=== PATIENT | female | born 1980 | race Caucasian/White ===

== ENCOUNTER → 2020-07-29 09:11 | Outpatient (CLI) | payer OTHER, SELFPAY ==
[2020-07-29 08:34] VITALS: BMI 31.3
--- NOTE | 2020-07-29 09:27 | RAD_ITS ---
STUDY: X-RAY - RIGHT FOOT CLINICAL: Female, 40 years old. Right foot stepped on by horse last night, bruising throughout the entire foot, pain is dorsal side near all the toes TECHNIQUE: 3 view(s) of the foot. COMPARISON: None. FINDINGS: Screw fixation is seen in the body of the calcaneus. Normal visualized subtalar, talonavicular, calcaneocuboid, tarsal and tarsometatarsal articulations. Normal metatarsi. There is degenerative arthrosis of the metatarsophalangeal joint of the hallux with a hallux valgus deformity. Normal tibial and fibular sesamoid bones. Normal interphalangeal joint of the great toe. Normal phalanges of the great toe. Normal second through fifth metatarsophalangeal joints. Normal interphalangeal joints and phalanges of the lesser toes. Dorsal soft tissue swelling. RAD/Foot min 3 Views IMPRESSION: Dorsal soft tissue swelling. No fracture is seen. Electronically Signed: Carlos Chauhan, at 9:55 EDT , Service support ,
== END ==
PROVIDERS: Referring Provider Physician Assistant Surgical; Visit Provider Physician Assistant Surgical
DX: S90.31XA Contusion of right foot, initial encounter (principal); X58.XXXA Exposure to other specified factors, initial encounter; Y93.9 Activity, unspecified; Y92.9 Unspecified place or not applicable; Y99.9 Unspecified external cause status
CPT/HCPCS: 73630

== ENCOUNTER 2021-10-15 09:38 | Day surgery (SDC) | payer OTHER, SELFPAY ==
--- NOTE | 2021-10-14 13:16 | PCM.HP.BLA ---
History and Physical Date of Admission: 10/15/21 Expand All Collapse AllExpand All by Default Hide copied text Hover for details Pre-Op History and Physical ? HPI: The patient is a 41 year old female presenting for question regarding surgical intervention for 10 cm dermoid cyst. All tumor markers were negative. Patient would like to proceed with surgical intervention. ? Pre-operative visit. She is scheduled for laparoscopic right ovarian cystectomy possible oophorectomy for 10cm dermoid cyst and pelvic pain. on 10/15/21. Procedure discussed along with risks, benefits and complications. Other alternatives discussed for management. Consent form signed? Yes. ? ? PAST MEDICAL HISTORY PAST MEDICAL HISTORY Diagnosis Date ? HPV (human papilloma virus) infection 2010 ? colp done +16 & 18 ? Mild dysplasia of cervix 2013 ? DEAN 1 2011 2010 ? NEGATIVE MEDICAL HISTORY ? ? ? PAST SURGICAL HISTORY PAST SURGICAL HISTORY Procedure Laterality Date ? PAST SURGICAL HISTORY OF Right 2013 ? ankle surgery ? ? ? CURRENT MEDICATIONS No current outpatient medications on file. ? No current facility-administered medications for this visit. ? ? ALLERGIES: Patient has no known allergies. ? PERSONAL HISTORY: SOCIAL HISTORY Social History ? Tobacco Use ? Smoking status: Former Smoker ? Smokeless tobacco: Never Used Vaping Use ? Vaping Use: Never used Substance Use Topics ? Alcohol use: Yes ? ? Comment: 1-2 drinks per year ? Drug use: Never ? FAMILY HISTORY: FAMILY HISTORY No family history on file. ? REVIEW OF SYMPTOMS: negative except as noted above PHYSICAL EXAMINATION: ? VITALS: Blood pressure 124/72, height 5' 6.54 (1.69 m), weight 249 lb (112.9 kg), last menstrual period 09/29/2021. ? GENERAL: The patient is well nourished, well hydrated in no acute distress. , The patient is oriented to time, place, and person. NECK: full range of motion ? IMPRESSION: 41yo with pelvic pain, right ovarian dermoid cyst 10cm ? PLAN: Laparoscopic right cystectomy possible oophorectomy ? Pt has been counseled on risks/benefits and alternatives of surgery including but not limited to anesthesia, bleeding, infection, injury to pelvic structures including bowel, bladder, ureters and vessels. Pt wishes to proceed with surgery at this time. ? Pre and post op instructions reviewed COVID testing reviewed ? I have reviewed and updated past medical and surgical history, medications and allergies Светлана Manley MD ?3:36 PM
[2021-10-15] VITALS (7 sets, daily range): BP systolic 109–132; BP diastolic 73–90; PULSE 76–96; RESP 16–18; TEMP 35.9–36.7; O2SAT 94–100; BMI 38.4
--- NOTE | 2021-10-15 | OV_PTH ---
PATIENT: RUIZ BELL LOC: [facility] [place] [facility] [place][id number] AGE/SX: 41/F ROOM: RE10/15/[address]: Dr. Светлана Cox, MDDOB: 1980 BED: DIS: 10/15/2021 SPEC #: [id number] RECD: 10/15/21 15:39 STATUS: MADDY LILIAN #: [id number] VIMAL: 10/15/21 00:[address]: Светлана Cox DEPT: SURGICAL PATHOLOGY RECD BY: Niranjan Padron ENTERED: 10/16/21 08:29 SP TYPE: OVARY OTHR DR: No Primary Care Phys Tissues: OVARIAN CYST Procedures: Surgery Specimen Level V HEADER OPERATION: Laparoscopic right ovarian cystectomy, salpingo-oophorectomy PRE-OP DIAGNOSIS: Right ovarian dermoid cyst 10 cm TISSUE SUBMITTED: Right dermoid cyst, ovary and fallopian tube MICROSCOPIC DIAGNOSIS Right ovarian cyst and fallopian tube, salpingo-oophorectomy: Mature cystic teratoma (dermoid cyst). Fallopian tube with no pathologic change. AM:arun 10/21/2021 MICROSCOPIC DESCRIPTION Slides are reviewed. GROSS DESCRIPTION Received in fixative is one container labeled with the patient's name and designated right dermoid cyst, ovary and fallopian tube. The specimen consists of a cystic structure that has been opened along one aspect. The cystic structure measures 9.5 x 7 x 5 cm and contains hair. Attached along one surface is a fallopian tube without distinct fimbrial end measuring 5 cm in length and 0.4 cm in average diameter. The external surface of the cystic structure is inked. The cyst wall averages 0.4 cm in thickness with focal areas of induration and possible calcific change. Load Dropper sections of cystic structure and fallopian tube are submitted in four cassettes. Cassette 4 contains the calcific/indurated region after decalcification. / AM:arun 10/16/21 TC:1 CPT: 08731
[2021-10-15] MEDS: Lactated Ringers 1,000 ML 15 ML IV (10:15)
[2021-10-15 10:16] LABS: Internal QC Validated? YES +Cl - CLEAR BKGD; Pregnancy, Urine Negative Negative
[2021-10-15 10:20] LABS: Hematocrit 36.7 % (37-47); Hemoglobin 12.5 g/dL (12.0-15.0); Mean Corp Hgb Conc 34.1 g/dL (32-36); Mean Corpuscular Hgb 30.9 pg (27.0-32.0); Mean Corpuscular Volume 90.8 fL (81-99); Mean Platelet Vol. 9.5 fl (6.2-12.0); Platelet Count 234 K/mm3 (150-450); RBC Distribution Width CV 12.4 % (11.6-14.6); RBC Distribution Width SD 41.4 fl (35.1-43.9); Red Blood Count 4.04 M/mm3 (4.2-5.4); White Blood Count 5.5 K/mm3 (4.4-11.0)
[2021-10-15] MEDS: Bupivacaine Mpf 0.5% 30 ML VIAL (12:15)
--- NOTE | 2021-10-15 14:52 | EX.PCM.DISCH ---
Discharge Instructions Procedure Other Diet Discharge Diet: No restrictions Activity May resume sexual activity in: 2 weeks Lifting Restrictions: 20-25 lbs Dressing / Incision Call your doctor if your incision/area has: Continuous Slow Oozing, Sudden Increased Bleeding, Increased Pain/ Swelling, Increased Redness, Foul Smelling Discharge and Swelling at the incision site Call your doctor if you observe: Fever of 101 or Higher, Inability to urinate, Inability to have a bowel movement, Using more than 1 pad per hour and Uncontrolled pain Additional Dressing/Incision Instructions:: You have skin glue over your incision sites, do not pick off. You may shower and let the soap and water run over the incision sites and dab dry. Follow Up Care Please Follow Up With: Светлана Cox MD When: 1-2 weeks post OP if you need an appointment please call [phone] Test Results: Test results from this visit will be discussed in further detail at your follow-up appointment, if applicable. Discharge Plan Admission Attending Provider: Светлана Cox Primary Care Provider: Care Physician,Bonnie Primary Discharge Orders/Prescriptions Prescriptions: New oxycodone-acetaminophen [Percocet] 5-325 mg tablet 1 tab PO Q8H PRN (Reason: pain) 5 Days Qty: 10 RF: 0 oxycodone-acetaminophen [Percocet] 5-325 mg tablet 1 tab PO Q8H PRN (Reason: pain) 5 Days Qty: 10 RF: 0 Continued ibuprofen 600 mg Tablet 600 mg PO Q8H PRN (Reason: Pain) RF: 0 No Action naproxen sodium [Aleve] 220 mg capsule 220 mg PO BID PRN (Reason: Pain) RF: 0 Referrals / Follow Up: Care PhysicianoBnnie Primary [Primary Care Provider] - Disposition Disposition (needs filled in before D/C Order can be placed): Home, Self Care
--- NOTE | 2021-10-15 14:58 | OP.PCM_ITS ---
Report of Operation Date of Procedure: 10/15/21 Pre-Operative Diagnosis: dermoid cyst of right ovary, pelvic pain Post-Operative Diagnosis: same Surgery/Procedure Performed:: Laparoscopic RSO, removal of dermoid cyst Description of Surgical Findings:: large 15cm dermoid cyst arising from right ovary- left ovary and tube are normal. uterus normal. Cyst inadvertently spilled into the abdominal cavity copious irrigation was performed with 6500 cc of normal saline. Fluid deficit of approximately 1000 cc. Surgeon: Светлана Cox gastroenterology nurse: Marcella Mckeon Type of Anesthesia: General and Local Special Medications: 0.5% marcaine Specimen's removed: right ovary, tube, dermoid cyst Drains: none Estimated Blood Loss (mL): 20 Fluids Replaced: 1500 Description of Procedure: Informed consent was obtained patient was taken the operating room she was placed in supine position. After general anesthesia was initiated her arms were placed in a safe neutral position at her sides. She was then placed in the [facility] she was prepped and draped in normal sterile fashion. At this time Marcaine was injected into the umbilicus towel clamps were placed on either side small 5 mm incision was made and a 5 mm trocar was placed under direct visualization. At this time lower quadrant ports were placed one in the right and one in the left. The umbilical incision was ex tended to a 12 mm port. At this time the decision was made to remove the entire ovary and tube on the right side as there was no ovarian tissue appreciated and the cyst was encompassing the entire pelvic cavity. Decision for a suprapubic port for better manipulation of the cyst. Again Marcaine was injected small incision was made and a 5 mm trocar was placed in the supraumbilical region. At this time the LigaSure was used to coagulate and ligate on the infundibulopelvic ligament along the mesosalpinx and the utero-ovarian ligament. Once the specimen was detached it was placed in the anterior cul-de-sac. At this time a 10 mm Endo Catch bag was placed the cyst was too large decision was made at this time to make a small incision in the cyst and drain it. The suction irrigation tube was hooked up to an ovarian needle suction of approximately 500 cc of thick mucinous material was evacuated. At this time the specimen was then placed in the bag brought to the umbilical incision during removal of the ovarian bag was torn and the cyst contents were spilled into the abdominal cavity. At this time the remainder of the cyst, ovary and tube were removed. At this time copious irrigation of the entire abdominal pelvic cavity were performed using approximately 6500 cc of normal saline. Any sebaceous and cyst material including hair was evacuated. Had approximately 1000 cc fluid deficit after irrigation was performed. There is a small amount of bleeding noted from epiploica on the left side it was monitored and appeared to clot off. There was no active oozing. Augustus was placed over the epiploica. At this time the pedicles were again evaluated excellent hemostasis appreciated. The left tube and ovary appeared to be normal. Uterus appeared normal there were no other gr oss adhesions or abnormalities. At this time the ports were removed. The fascia was closed using 0 Vicryl on UR 6 needle in the umbilical incision. It was copiously irrigated first after the fascia was then closed Betadine was placed. Incision sites were then closed using 4-0 Monocryl in a subcutaneous fashion. Dermabond was applied. Uterine manipulator was removed without difficulty. Vaginal sweep was performed was negative. Grafts/Implants Used: None Procedure Start Time: 12:15 Procedure Stop Time: 14:29 Complications None Admit VTE Documentation VTE Present on Admission: Yes VTE Mechan Device Prophylaxis: SCD's VTE Pharm Prophylaxis ordered?: No
[2021-10-15] MEDS: HYDROcodone Bitartrate/Apap 5/325 Tablet PO (16:30)
== END 2021-10-15 17:11 | disposition home or self-care (01) ==
LOC: SDC 09:39 → AC 09:40
PROVIDERS: Referring Provider Obstetrics & Gynecology; Visit Provider Obstetrics & Gynecology
PROC: (CPT 58661; principal; 2021-10-15 11:15)
DX: D27.0 Benign neoplasm of right ovary (principal); R10.2 Pelvic and perineal pain; Z87.891 Personal history of nicotine dependence
CPT/HCPCS: 00840; 58661; 58662; 81025; 85027; 88305; 88307; J7120; J2405